=== PATIENT | male | born 1975 | race Caucasian/White ===

== ENCOUNTER 2020-09-02 08:51 | Outpatient (REF) | payer OTHER, SELFPAY ==
[2020-09-02 09:16] LABS: COVID-19 Test Negative (Negative); IDNOW Serial# 55D5AD1C
== END 2020-09-02 08:52 | disposition home or self-care (01) ==
LOC: HO.LAB 08:51
PROVIDERS: Visit Provider Internal Medicine
DX: Z20.828 Contact with and (suspected) exposure to other viral communicable diseases (principal)
CPT/HCPCS: 87635; C9803

== ENCOUNTER 2020-09-04 07:33 | Outpatient (REF) | payer OTHER, SELFPAY | END 2020-09-04 07:34 | disposition home or self-care (01) | LOC: HO.LAB 07:33 | PROVIDERS: Visit Provider Internal Medicine | DX: Z20.828 Contact with and (suspected) exposure to other viral communicable diseases (principal) | CPT/HCPCS: C9803; U0003 ==

== ENCOUNTER → 2021-05-07 11:07 | Outpatient (BNVA) | payer OTHER, SELFPAY | PROVIDERS: PCP Internal Medicine; Visit Provider Physician Assistant Medical | DX: S90.121A Contusion of right lesser toe(s) without damage to nail, initial encounter (principal); W23.0XXA Caught, crushed, jammed, or pinched between moving objects, initial encounter | CPT/HCPCS: 73630; 99202 ==

== ENCOUNTER → 2021-05-12 09:38 | Outpatient (BNVA) | payer OTHER, SELFPAY | PROVIDERS: PCP Internal Medicine; Visit Provider Physician Assistant Medical | DX: S90.121D Contusion of right lesser toe(s) without damage to nail, subsequent encounter (principal); X58.XXXD Exposure to other specified factors, subsequent encounter | CPT/HCPCS: 99213 ==

== ENCOUNTER 2022-01-25 06:45 | Outpatient (REF) | payer OTHER, SELFPAY ==
[2022-01-25 06:57] LABS: MANUAL DIFF FLAG NO
[2022-01-25 07:39] LABS: Basophils Percent Auto 0.3 % (0-2); Eosinophils Absolute Auto 0.5 X10*3/uL (0.0-0.4); Eosinophils Percent Auto 7.4 % (0-4); Hematocrit 42.2 % (42.0-52.0); Hemoglobin 14.4 g/dl (14.0-18.0); Imm Gran Abs Auto 0.03 X10*3/uL (0.00-0.03); Imm Gran Pct Auto 0.5 % (0.0-0.4); Lymphocytes Absolute Auto 2.5 X10*3/uL (1.2-4.9); Lymphocytes Percent Auto 37.1 % (20-40); Mean Corpuscular HGB Conc 34.1 g/dl (31.0-36.0); Mean Corpuscular Hemoglobin 29.8 pg (27.0-33.0); Mean Corpuscular Volume 87.2 fL (80.0-98.0); Mean Platelet Volume 9.7 fL (9.4-12.4); Monocytes Absolute Auto 0.6 X10*3/uL (0.1-1.2); Monocytes Percent Auto 9.1 % (2-11); Neutrophils Percent Auto 45.6 % (45-73); Platelet Count 316 X10*3/uL (160-400); Red Blood Count 4.84 X10*6/uL (4.60-5.80); White Blood Count 6.6 X10*3/uL (4.8-10.8)
[2022-01-25 08:02] LABS: Alanine Aminotransferase 18 U/L (0-40); Albumin Level 4.3 g/dL (3.5-5.0); Alkaline Phosphatase 45 U/L (39-117); Anion Gap 13 (12-20); Aspartate Amino Transferase 16 U/L (5-37); Bilirubin Total 0.6 mg/dL (0.0-1.0); Blood Urea Nitrogen 13 mg/dL (9-16); Calcium 9.9 mg/dL (8.4-10.2); Carbon Dioxide 25 mmol/L (22-29); Chloride 107 mmol/L (96-108); Cholesterol 232 mg/dL; Estimated Glomerular Filt Rate > 60; Glucose Fasting 94 mg/dL (60-99); HDL Cholesterol 58 mg/dL; LDL Cholesterol Calculated 156 mg/dl; Potassium 4.7 mmol/L (3.3-5.1); Sodium 140 mmol/L (135-145); Total Protein 7.2 g/dL (6.5-8.0); Triglycerides 90 mg/dL
== END 2022-01-25 06:46 | disposition home or self-care (01) ==
LOC: HO.LAB 06:45
PROVIDERS: PCP Internal Medicine; Visit Provider Internal Medicine
DX: Z00.00 Encounter for general adult medical examination without abnormal findings (principal)
CPT/HCPCS: 36415; 80053; 80061; 85025

== ENCOUNTER → 2022-02-28 12:41 | Outpatient (REF) | payer OTHER, SELFPAY ==
--- NOTE | 2022-02-28 12:44 | CA_ITS ---
Transthoracic Echocardiogram Patient (Last, First, Middle): Ld Mcclellan T Gender: Male Date of : 1975 Age: 46 Procedure Date: 02/28/2022 Procedure Type: Transthoracic Echocardiogram Location: OP Height: 182.88 cm Weight: 86.18 kg BSA: 2.08 m2 Heart Rate: bpm BP: 122 / 80 mmHg Director Of Direct Marketing: HATTIE Referring MD: ePter Longo MD Symptoms: Z82.49 FAM HX ISCHEMIC HEART DISEASE.FAM HX ARVC ASSESS RV, Study Quality: Good ECG Rhythm: Sinus Conclusions: - The left ventricular systolic function is normal. The calculated ejection fraction is 65% by biplane method. - Normal right ventricular cavity size and systolic function. - No obvious valvular pathology seen on this study. Findings Left Ventricle Normal left ventricular cavity size. There is normal left ventricular wall thickness. The left ventricular systolic function is normal. The calculated ejection fraction is 65% by biplane method. There is no evidence of regional wall motion abnormalities. Diastolic function is normal for age. LV peak GLS -18.7%. Right Ventricle Normal right ventricular cavity size and systolic function. Atria Both atria are normal in size. Aortic Valve There is a normal trileaflet aortic valve. There is no aortic valve stenosis. There is no aortic valve regurgitation. Mitral Valve The mitral valve appears normal. There is no mitral valve regurgitation. There is no mitral valve stenosis. Pulmonic Valve The pulmonic valve is likely normal. Tricuspid Valve There is trace tricuspid valve regurgitation. The pulmonary artery systolic pressure is normal. Great Vessels The aortic annulus, sinuses of valsalva, asc aorta, and aortic arch are normal in size. Venous The inferior vena cava is normal in size and collapses greater than 50% with inspiration. Pericardium/Pleural There is no evidence of pericardial effusion. Prior Study Comparison No prior study available for comparison. Recommendations, Care & Conclusions No obvious valvular pathology seen on this study. Measurements 2D Linear Measurements IVSd: 0.86 0.6-0.9/0.6-1.0 cm LVIDd: 4.58 3.9-5.3/4.2-5.9 cm LVIDd Index: 2.20 2.4-3.2/2.2-3.1 cm/m2 LVIDs: 2.62 2.0-3.6 cm LVPWd: 0.93 0.7-1.1 cm LA Diam: 4.10 2.7-3.8/3.0-4.0 cm LAIDs Index: 1.97 1.5-2.3 cm/m2 LV Mass: 169.03 67-162/88-224 g LV Mass Index: 81.26 43-95/49-115 g/m2 LVOT Diam: 2.50 3.0+(-)1.3 cm 2D Systolic Function EF 4C: 63.90 >55% EF 2C: 66.10 >55% EF BiP: 65.00 >55% Mitral Valve MV Pk E: 0.62 MV PK A: 0.50 MV Decel Time: 228.00 E/A: 1.20 E'Lateral: 12.30 E'Medial: 7.51 E/E' Med: 8.20 E/E' Lat: 5.00 PHT: 67.00 MVA PHT: 3.28 Decel Cherokee: 2.70 Aortic Valve AoV Pk Bernardino: 1.31 AoV Mn Bernardino: 0.93 AoV VTI: 0.30 AoV Pk Grad: 7.00 Aov Mn Grad: 4.00 LONG Cont.VTI: 3.83 LVOT LVOT Pk Bernardino: 1.10 LVOT Mn [place]: 0.69 LVOT VTI: 0.23 LVOT Pk Grad: 5.00 LVOT Mn Grad: 2.00 LVOT Diam: 2.50 LVOT Area: 4.91 Diastolic Function MV Pk E: 0.62 MV Pk A: 0.50 E/A: 1.20 E'Medial: 7.51 E/E' Med: 8.20 E' Laterial: 12.30 E/E' Lat: 5.00 Right Ventricle TAPSE (mm): 25.80 TVS' Bernardino: 11.70 Tricuspid Valve TR Pk Bernardino: 1.80 TR Pk Grad: 13.00 RA Press: 3.00 RVSP: 16.00 Great Vessels Aorta Sinus of Valsalva: 3.39 2.0-3.[address] Ridge: 2.16 1.7-3.4 cm Ao Asc: 3.30 2.1-3.4 cm Ao Arch: 2.90 Updated in Other Vendor System with Status of Final Garth Estes MD electronically signed on 02/28/2022 4:11:13 PM with status of Final
== END ==
LOC: HO.CARD 12:41
PROVIDERS: PCP Internal Medicine; Visit Provider Internal Medicine
DX: Z82.49 Family history of ischemic heart disease and other diseases of the circulatory system (principal)
CPT/HCPCS: 93306; 93356

== ENCOUNTER 2022-05-11 11:11 | Outpatient (REF) | payer OTHER, SELFPAY ==
[2022-05-11 13:49] LABS: Blood Urea Nitrogen 10 mg/dL (9-16); Estimated Glomerular Filt Rate > 60
== END 2022-05-11 11:12 | disposition home or self-care (01) ==
LOC: HO.LAB 11:11
PROVIDERS: PCP Internal Medicine; Visit Provider Internal Medicine Cardiovascular Disease
DX: Z01.812 Encounter for preprocedural laboratory examination (principal)
CPT/HCPCS: 36415; 82565; 84520

== ENCOUNTER 2023-01-25 14:49 | Outpatient (REF) | payer OTHER, SELFPAY ==
[2023-01-25 15:21] LABS: MANUAL DIFF FLAG NO
[2023-01-25 15:48] LABS: Basophils Percent Auto 0.3 % (0-2); Eosinophils Absolute Auto 0.2 X10*3/uL (0.0-0.4); Eosinophils Percent Auto 2.5 % (0-4); Hematocrit 42.2 % (42.0-52.0); Hemoglobin 14.4 g/dl (14.0-18.0); Imm Gran Abs Auto 0.03 X10*3/uL (0.00-0.03); Imm Gran Pct Auto 0.3 % (0.0-0.4); Lymphocytes Absolute Auto 4.4 X10*3/uL (1.2-4.9); Lymphocytes Percent Auto 47.6 % (20-40); Mean Corpuscular HGB Conc 34.1 g/dl (31.0-36.0); Mean Corpuscular Hemoglobin 30.3 pg (27.0-33.0); Mean Corpuscular Volume 88.7 fL (80.0-98.0); Mean Platelet Volume 9.3 fL (9.4-12.4); Monocytes Absolute Auto 0.7 X10*3/uL (0.1-1.2); Monocytes Percent Auto 7.7 % (2-11); Neutrophils Absolute Auto 3.8 x10*3/uL (2.0-8.3); Neutrophils Percent Auto 41.6 % (45-73); Platelet Count 306 X10*3/uL (160-400); Red Blood Count 4.76 X10*6/uL (4.60-5.80); Red Cell Distribution Width 11.9 % (11.0-16.0); White Blood Count 9.2 X10*3/uL (4.8-10.8)
[2023-01-25 16:12] LABS: Alanine Aminotransferase 22 U/L (0-40); Albumin Level 4.3 g/dL (3.5-5.0); Alkaline Phosphatase 46 U/L (39-117); Anion Gap 12 (12-20); Aspartate Amino Transferase 22 U/L (5-37); Bilirubin Total 0.6 mg/dL (0.0-1.0); Blood Urea Nitrogen 11 mg/dL (9-16); Calcium 9.4 mg/dL (8.4-10.2); Carbon Dioxide 25 mmol/L (22-29); Chloride 105 mmol/L (96-108); Estimated Glomerular Filt Rate > 60; Glucose Random 82 mg/dL (60-115); Magnesium 1.9 mg/dL (1.6-2.6); Potassium 4.4 mmol/L (3.3-5.1); Sodium 138 mmol/L (135-145); Total Protein 7.2 g/dL (6.5-8.0)
== END 2023-01-25 14:50 | disposition home or self-care (01) ==
LOC: HO.LAB 14:49
PROVIDERS: PCP Internal Medicine; Visit Provider Internal Medicine
DX: Z01.818 Encounter for other preprocedural examination (principal)
CPT/HCPCS: 36415; 80053; 83735; 85025

== ENCOUNTER 2023-02-01 14:42 | Outpatient (REF) | payer OTHER, SELFPAY ==
--- NOTE | ~2023-02-01 | XR_ITS ---
EXAMINATION: XR SINUSES CLINICAL INFORMATION: Sinus pressure COMPARISON: None available. TECHNIQUE: 3 views of the sinuses were obtained. FINDINGS: Paranasal sinuses appear clear without air-fluid levels. No fractures are identified. No radiodense foreign bodies. XR/XR sinus min 3V IMPRESSION: Unremarkable sinus exam examination.
[2023-02-01 14:56] LABS: MANUAL DIFF FLAG NO
[2023-02-01 15:32] LABS: Basophils Percent Auto 0.3 % (0-2); Eosinophils Absolute Auto 0.4 X10*3/uL (0.0-0.4); Eosinophils Percent Auto 3.3 % (0-4); Hematocrit 39.2 % (42.0-52.0); Hemoglobin 13.5 g/dl (14.0-18.0); Imm Gran Abs Auto 0.06 X10*3/uL (0.00-0.03); Imm Gran Pct Auto 0.5 % (0.0-0.4); Lymphocytes Absolute Auto 4.2 X10*3/uL (1.2-4.9); Lymphocytes Percent Auto 32.6 % (20-40); Mean Corpuscular HGB Conc 34.4 g/dl (31.0-36.0); Mean Corpuscular Hemoglobin 30.5 pg (27.0-33.0); Mean Corpuscular Volume 88.7 fL (80.0-98.0); Mean Platelet Volume 9.3 fL (9.4-12.4); Monocytes Percent Auto 8.1 % (2-11); Neutrophils Absolute Auto 7.1 x10*3/uL (2.0-8.3); Neutrophils Percent Auto 55.2 % (45-73); Platelet Count 298 X10*3/uL (160-400); Red Blood Count 4.42 X10*6/uL (4.60-5.80); Red Cell Distribution Width 11.8 % (11.0-16.0); White Blood Count 12.8 X10*3/uL (4.8-10.8)
== END 2023-02-01 14:43 | disposition home or self-care (01) ==
LOC: HO.LAB 14:42
PROVIDERS: PCP Internal Medicine; Visit Provider Internal Medicine
DX: J02.9 Acute pharyngitis, unspecified (principal); R53.83 Other fatigue; R51.9 Headache, unspecified
CPT/HCPCS: 36415; 70220; 85025; 87070; 87147; 87205

== ENCOUNTER 2023-02-02 10:37 | Outpatient (REF) | payer OTHER, SELFPAY ==
[2023-02-02 14:38] LABS: Adenovirus F 40/41 Not Detected (Not Detect.); Campylobacter Not Detected (Not Detect.); Cryptosporidium Not Detected (Not Detect.); Cyclospora cayetanensis Not Detected (Not Detect.); E. coli EAEC Not Detected (Not Detect.); E. coli EPEC Not Detected (Not Detect.); E. coli ETEC Not Detected (Not Detect.); E. coli STEC Not Detected (Not Detect.); Entamoeba histolytica Not Detected (Not Detect.); Giardia lamblia Not Detected (Not Detect.); Plesiomonas shigelloides Not Detected (Not Detect.); Salmonella Not Detected (Not Detect.); Shigella sp./EIEC Not Detected (Not Detect.); Vibrio Not Detected (Not Detect.); Vibrio Cholerae Not Detected (Not Detect.); Yersinia enterocolitica Not Detected (Not Detect.)
[2023-02-02 14:39] LABS: Astrovirus Not Detected (Not Detect.); Norovirus GI/GII Not Detected (Not Detect.); Rotavirus A Not Detected (Not Detect.); Sapovirus Not Detected (Not Detect.)
== END 2023-02-02 10:38 | disposition home or self-care (01) ==
LOC: HO.LNP 10:37
PROVIDERS: Visit Provider Internal Medicine
DX: J02.9 Acute pharyngitis, unspecified (principal); R50.9 Fever, unspecified; J34.89 Other specified disorders of nose and nasal sinuses; R19.7 Diarrhea, unspecified
CPT/HCPCS: 87507

== ENCOUNTER 2023-02-20 16:13 | Outpatient (REF) | payer OTHER, SELFPAY | END 2023-02-20 16:14 | disposition home or self-care (01) | LOC: HO.LNP 16:13 | PROVIDERS: Visit Provider Internal Medicine | DX: J02.9 Acute pharyngitis, unspecified (principal) | CPT/HCPCS: 87070 ==

== ENCOUNTER 2023-11-17 08:56 | Day surgery (SDC) | payer OTHER, SELFPAY ==
--- NOTE | 2023-06-27 09:19 | HO.ANESPROP2 ---
HPI - Anesthesia Eval Consult details Narrative: 47yo M for Colonoscopy [facility] Past Medical History Medical History (Updated 01/27/23 @ 13:43 by Leslie Espinal RN) Long QT interval History of IBS Meds Allergies Allergy/AdvReac Type Severity Reaction Status Date / Time No Known Allergies Allergy Unverified 06/25/20 15:21 Home Medications Medication Instructions Recorded Confirmed Last Taken Type nadolol 40 mg tablet 40 mg PO DAILY 01/27/23 01/27/23 Unknown History Exam Exam Date and Time: June 27, 2023 0919 Pertinent Lab Results Pertinent Lab Results: Laboratory Tests 01/25/23 02/01/23 15:15 14:56 WBC 12.8 H Hgb 13.5 L Hct 39.2 L Plt Count 298 Sodium 138 Potassium 4.4 Chloride 105 Carbon Dioxide 25 BUN 11 Creatinine 0.93 Narrative Narrative: ECHO 2021 Conclusions: - The left ventricular systolic function is normal. The calculated ejection fraction is 65% by biplane method. - Normal right ventricular cavity size and systolic function. - No obvious valvular pathology seen on this study. Assessment and Plan Assessment Anesthesia Assessment: Chart Reviewed
[2023-11-15 14:49] VITALS: BMI 25.9
--- NOTE | 2023-11-16 11:48 | P.CONAN_ITS ---
Documented by User: Lindsay Osorio NP 11/16/23 13:01 HPI - Anesthesia Eval Consult details Narrative: 48yo M for Colonoscopy Follows cardiology for Long QT syndrome with issue. OK to proceed per cardiology letter. [facility] Past Medical History Medical History Family history of cardiac arrest Long QT interval History of IBS Surgical History Surgical History No pertinent past surgical history Social History Social History Patient Tobacco Use Status: Never used Tobacco Use of substances other than those prescribed or required for medical reasons: Yes Are you DNR?: No Advance Directives: No Advance Directives Information Provided: Yes Meds Allergies Allergy/AdvReac Type Severity Reaction Status Date / Time No Known Allergies Allergy Unverified 06/25/20 15:21 Home Medications Medication Instructions Recorded Confirmed Last Taken Type nadolol 40 mg tablet 40 mg PO DAILY 01/27/23 01/27/23 Unknown History Exam Height,Weight and Vital Signs: Height 6 ft Weight 86.636 kg Narrative Narrative: ECHO 2021 Conclusions: - The left ventricular systolic function is normal. The calculated ejection fraction is 65% by biplane method. - Normal right ventricular cavity size and systolic function. - No obvious valvular pathology seen on this study. Assessment and Plan Assessment Anesthesia Assessment: Chart Reviewed Documented by User: Paul Corbin MD 11/17/23 10:11 [facility] Past Medical History Medical History Family history of cardiac arrest Long QT interval History of IBS Family History Family history of problems with anesthesia: No Surgical History Surgical History No pertinent past surgical history History of Problems with Anesthesia: No Social History Social History Patient Tobacco Use Status: Never used Tobacco Use of substances other than those prescribed or required for medical reasons: Yes Are you DNR?: No Advance Directives: No Advance Directives Information Provided: Yes Meds Allergies Allergy/AdvReac Type Severity Reaction Status Date / Time No Known Allergies Allergy Unverified 06/25/20 15:21 Home Medications Medication Instructions Recorded Confirmed Last Taken Type nadolol 40 mg tablet 40 mg PO DAILY 01/27/23 01/27/23 Unknown History Exam Airway Mallampati Class: II TM Dist: >3cm Neck ROM: Full Loose/Missing/Broken Teeth: No Heart: rrr+s1s2 Lungs: cta b/l Assessment and Plan Assessment Anesthesia Assessment: Anesthesia Plan Discussed Final Anesthetic Review Family History of Problems with Anesthesia: No History of Problems with Anesthesia: No NPO: Yes ASA Class: II Final Preanesthetic Review: No Changes in Pt Med Stat, Meds/Allgs Chart Reviewed, Consent Obtained/Reviewed and Anes Risks/Benef Reviewed Patient Risk: Intermediate Procedure Risk: Intermediate Assessment/Block/Sedation in SS: Assess/Block/Sedation-SS Anesthetic Plan Anesthetic Plan: MAC: Disposition: Standard PACU
--- OUTSIDE RECORDS SUMMARY | 2023-11-17 08:58 | XMS_ITS | Continuity of Care Document ---
Author Name Unknown Organization [facility] Address [address] [address]- Care Team Providers Care Needle Punch Machine Operator Helper Name Role Phone Peter Longo MD Primary Care Physician [phone] Encounter [facility] [place] Date(s): 03/03/22 - 03/10/22 [facility] [address] [address]- Encounter Diagnosis Cardiomyopathy, familial(Discharge Diagnosis) - 03/03/22 Attending Physician: Danny Zavala Jr, MD Admitting Physician: Danny Zavala Jr, MD Referring Physician: Peter Longo MD Allergies, Adverse Reactions, Alerts No Known Medication Allergies Medications No Known Medications Problem List Diagnosis Diagnosis Type Effective Dates Health Status Cl inical Service Informant Cardiomyopathy, familial Discharge Diagnosis 03/03/22 Vital Signs Most recent to oldest [Reference Range]: 1 Weight 87.6 kg (03/03/22 8:56 AM) Oxygen Saturation [94-100 %] 98 % (03/03/22 8:56 AM) Pulse Rate [55-90 bpm] 66 bpm (03/03/22 8:56 AM) Blood Pressure [90-138/55-84 mm Hg] 113/ 68mm Hg (03/03/22 8:56 AM) Mode of Delivery (Oxygen) Room air (03/03/22 8:56 AM) Blood pressure sites Arm, left (03/03/22 8:56 AM) Weight Obtained Via Standing scale (03/03/22 8:56 AM)
--- OUTSIDE RECORDS SUMMARY | 2023-11-17 08:58 | XMS_ITS | Continuity of Care Document ---
Author Name Unknown Organization [facility] Address [address] [place] [address]- Care Team Providers Care Boom Boss Name Role Phone Peter Longo MD Primary Care Physician Encounter [facility] [place] Date(s): 07/12/22 - 08/11/22 [facility] [place] [address] [place] [address]- Allergies, Adverse Reactions, Alerts No Known Medication Allergies Medications nadolol 40 mg oral tablet 40 mg, 1, tablet, By Mouth, Daily, # 30 tablet, Refills 3, Tot. Refills 3, Maintenance, 06/10/22 15:08:00 EDT, Route to Pharmacy Electronically, [facility], Partial fill upon patient request if the prescription is for a schedule II opioi... Start Date: 06/10/22 Status: Ordered Patient Care team information Personnel Name: Peter Longo MD Address: Address: [address] [place] [address] [place] [address]-
--- OUTSIDE RECORDS SUMMARY | 2023-11-17 08:58 | XMS_ITS | Continuity of Care Document ---
Author Name Unknown Organization [facility] Address [address] Floor [address] [place] [address]- Care Team Providers Care Manager Steel Name Role Phone Peter Longo MD Primary Care Physician [place] [facility] [place]22 - 07/08/22 [facility] [place] [address] [place] [address]- Attending Physician: Sara Calzada Admitting Physician: Sara Calzada Referring Physician: AdmtrSara Allergies, Adverse Reactions, Alerts No Known Medication [...] Personnel Name: Peter Longo MD Address: Address: [address] [place] [address] [place] [address]-
--- OUTSIDE RECORDS SUMMARY | 2023-11-17 08:58 | XMS_ITS | Continuity of Care Document ---
Author Name Unknown Organization [facility] Address [address] [place] [address]- Care Team Providers Care Saturation Equipment Operator Name Role Phone Peter Longo MD Primary Care Physician En[place] [facility] [place] Date(s): 06/21/22 - 07/21/22 [facility] [address] [place] [address]- Allergies, Adverse Reactions, Alerts No Known Medication [...] Personnel Name: Peter Longo MD Address: Address: [address] [facility] [place] [address]-
--- OUTSIDE RECORDS SUMMARY | 2023-11-17 08:58 | XMS_ITS | Continuity of Care Document ---
Author Name Unknown Organization [facility] Address [address] [place] [address]- Care Team Providers Care Rivet Machine Operator Name Role Phone Peter Longo MD Primary Care Physician [place] [facility] [place] 06/08/22 - 06/15/22 [facility] [place] [address] [place] [address]- Encounter Diagnosis Long QT syndrome type 2(Discharge Diagnosis) - 06/08/22 Attending Physician: Danny Zavala Jr, MD Admitting [...] II opioi... Start Date: 06/10/22 Status: Ordered Problem List Diagnosis Diagnosis Type Effective Dates Health Status Cl inical Service Informant Long QT syndrome type 2 Discharge Diagnosis 06/08/22 Vital Signs Most recent to oldest [Reference Range]: 1 Weight 85.2 kg (06/08/22 9:57 AM) Oxygen Saturation [94-100 %] 100 % (06/08/22 9:57 AM) Pulse Rate [55-90 bpm] 76 bpm (06/08/22 9:57 AM) Blood Pressure [90-138/55-84 mm Hg] 125/ 83mm Hg (06/08/22 9:57 AM) Mode of Delivery (Oxygen) Room air (06/08/22 9:57 AM) Blood pressure sites Arm, left (06/08/22 9:57 AM) Weight Obtained Via Standing scale (06/08/22 9:57 AM) Care Team Personnel Name: Peter Longo MD Address: [address] [place], [place] [address]-
--- OUTSIDE RECORDS SUMMARY | 2023-11-17 08:58 | XMS_ITS | Continuity of Care Document ---
Author Name Unknown Organization [facility] Address [address] [id number]- Care Team Providers Care Food Safety Auditor Name Role Phone Peetr Longo MD Primary Care Physician [id number] Date[facility]s): 01/20/22 - 04/01/[address] [address]- Attending Physician: Danny Zavala Jr, MD Admitting Physician: Danny Zavala Jr, MD Referring Physician: Peter Longo MD Allergies, Adverse Reactions, Alerts No Known Medication Allergies
--- OUTSIDE RECORDS SUMMARY | 2023-11-17 08:58 | XMS_ITS | Continuity of Care Document ---
Author Name Unknown Organization [facility] Address [address] [address]- Care Team Providers Care Graining Press Operator Name Role Phone Peter Longo MD Primary Care Physician [place] [facility] [place] 05/03/22 - 06/02/22 [facility] [address] [address] Attending Physician: Admtr, Ar8 Admitting Physician: Admtr, Ar8 Referring Physician: Admtr, Ar8 Allergies, Adverse Reactions, Alerts No Known Medication Allergies Care Team Personnel Name: Peter Longo MD Address: [address] [facility] [place], [place] [address]
--- OUTSIDE RECORDS SUMMARY | 2023-11-17 08:58 | XMS_ITS | Continuity of Care Document ---
Author Name Unknown Organization [facility] Address [address] Floor [address] [place] [address]- Care Team Providers Care Running Specialist Name Role Phone Peter Longo MD Primary Care Physician Encounter [facility] [place] Date(s): 08/31/22 - 09/30/22 [facility] [place] [address] [place] [address]- Allergies, Adverse Reactions, Alerts No Known Medication Allergies Medications nadolol 40 mg oral tablet 40 mg, 1, tablet, By Mouth, Daily, # 90 tablet, Refills 3, Tot. Refills 3, Maintenance, 09/15/22 14:17:00 EST, Route to Pharmacy Electronically, [facility], Partial fill upon patient request if the prescription is for a schedule II opioi... Start Date: 09/15/22 Status: Ordered Patient Care team information Care Team Personnel Name: Peter Longo MD Position: S Outreach Member Role: PCP Address: Address: [address] [facility] [place] [address]- Care Team Related Persons Name: KADEN HOBBS Address: home [address] [place] [address]
--- OUTSIDE RECORDS SUMMARY | 2023-11-17 08:58 | XMS_ITS | Continuity of Care Document ---
Author Name Unknown Organization [facility] Address [address] [place] [address]- Care Team Providers Care Realtime Court Reporter Name Role Phone Peter Longo MD Primary Care Physician [place] [facility] [place](s): 09/15/22 - 10/15/22 [facility] [place] [address] [place] [address]- Allergies, Adverse Reactions, Alerts No Known Medication [...] S Outreach Member Role: PCP Address: Address: [address] [place] [address] [place] [address]- Care Team Related Persons Name: KADEN HOBBS Address: home [address] [place] [address]
--- OUTSIDE RECORDS SUMMARY | 2023-11-17 08:58 | XMS_ITS | Continuity of Care Document ---
Author Name Unknown Organization [facility] Address [address] [address]- Care Team Providers Care Home Planning Consultant Salesperson Name Role Phone Peter oLngo MD Primary Care Physician [phone] Encounter [facility] Date(s): 03/03/22 - 06/02/[address] [address] Attending Physician: Danny Zavala Jr, MD Admitting Physician: Danny Zavala Jr, MD Referring Physician: Peter Longo MD Allergies, Adverse Reactions, Alerts No Known Medication Allergies Care Team Personnel Name: Peter Longo MD Address: [address] [place], [place] [address]
--- OUTSIDE RECORDS SUMMARY | 2023-11-17 08:58 | XMS_ITS | Continuity of Care Document ---
Author Name Unknown Organization [facility] Address [address] [place] [address]- Care Team Providers Care Contracts Advisor Name Role Phone Peter Longo MD Primary Care Physician [phone] Encounter [facility] [place] Date(s): 06/27/22 - 07/27/22 [facility] [place] [address] [place] [address]- Allergies, Adverse Reactions, Alerts No Known Medication [...] Personnel Name: Peter Longo MD Address: Address: [address] [place] [address] [place] [address]-
--- OUTSIDE RECORDS SUMMARY | 2023-11-17 08:58 | XMS_ITS | Patient Health Record ---
Author Name Unknown Organization [facility] Address [address] [place] [address] Care Team Providers Care Entry Examiner Name Role Phone Peter Longo MD Primary Care Provider Raudel Irving [phone] ALLERGIES No Known Allergies REASON FOR REFERRAL No Information MEDICATIONS Medication SIG (Take, Route, Frequency, Duration) Notes Start Date End Date Status Nadolol 40 MG TAKE 1 TABLET BY RACHELL TH DAILY Oral for 90 Active IMMUNIZATIONS Vaccine Route Administration Date Status Comme nts Influenza Unknown 11/01/2022 Refused SOCIAL HISTORY Tobacco Use: Social History Observation Description Date Details (start date - stop date) Never Smoker NA - NA Sex Assigned At : Social History Observation Description Sex Assigned At Unknown Tobacco Use/Smoking Question Answer Notes Patient is a nonsmoker Alcohol Screen Question Answer Notes Did you have a drink contain ing alcohol in the past year? Yes How often did you have a dri nk containing alcohol in the past year? 2 to 4 times a month (2 points) How many drinks did you have on a typical day when you were drinking in the past year? 1 or 2 drinks (0 point) How often did you have 6 or more drinks on one occasion in the past year? Never (0 point) Points 2 Interpretation Negative PROBLEMS Problem Type ICD Code Onset Dates Problem Status W/U Status Risk SNOMED Code Notes Problem Colon cancer screening (Z12.11) Active confirmed 966607229 Problem Preprocedural examination (Z01.818) Active confirmed [id number] Encounters Encounter Location Date Provider Diagnosis [facility] [place] [address] [place] [phone] 01/09/2023 Raudel Mckeon [facility] [place] [address] [facility] [place] [id number] 01/30/2023 Raudel Mckeon [facility] [place] [address] [facility] [place] [id number] 04/05/2023 Raudel Mckeon [facility] [place] [address] [facility] [place] [phone] 2023 Raudel Mckeon [facility] [address] [facility] [place] [id number] 08/30/2023 Raudel Mckeon [facility] [place] [address] [facility] [place] [id number] 11/17/20[facility] [address] [place] [address] 11/17/2022 Raudel Mckeon [facility] [address] [place] [address] 02/05/2023 Raudel Mckeon [facility] [address] [place] [address] 04/03/2023 Raudel Mckeon [facility] [address] [place] [address] 06/27/2023 Raudel Mckeon [facility] [address] [place] [address] 08/17/2023 Raudel Mckeon [facility] [address] [place] [address] 11/05/2023 Raudel Mckeon PLAN OF TREATMENT Future Test Test Name Order Date COLONOSCOPY 11/01/2022 Next Appt Details Provider Name:Raudel Mckeon , 11/17/2023 10:00:00 AM, [address] [place] [address], [phone], Insurance Providers Payer Name Payer Address Payer Phone Subscriber Number Group Number Insured Name Patient Relationship to Insured Coverage Start Date Coverage End Date [facility] [address] [place] [phone] [id number] JOSHUA PEREYRA Self - patient is the insured MEDICAL (GENERAL) HISTORY Medical History History ICD Code Long Q-T interval--he has a family history of cardiac arrest in his brother who was successfully resuscitated and now has a defibrillator in place. Joshua is seeing Dr. Zavala at [facility] and Dr. Reinoso at [facility]-he has had ETT, Cardiac Echo, and is scheduled for placement of some type of internal monitor on 11/08/2022 with a followup appointment with Dr. Reinoso on 11/16/2022. Joshua was started on nadolol for the long QT interval. Denies GA,DM,CVA,Lung disease,renal dise ase Mild IBS with negative laboratories for celiac disease in 2019 Surgical History Surgery Date(Month/Year)
[2023-11-17 09:59] VITALS: BP 121/70; PULSE 57; RESP 16; TEMP 36.5; O2SAT 98; BMI 24.7
[2023-11-17] MEDS: Lactated Ringers 1,000 ML 100 ML IVCONT (10:10)
--- NOTE | 2023-11-17 10:49 | PM.OP ---
Brief Operative Note Date of Service: 11/10/23 Pre-op diagnosis: Screening Post-op diagnosis: other (Internal hemorrhoids) Procedure: Colonoscopy to the cecum and TI Surgeon: Raudel Mckeon MD Was an Financial Reporting Accountant used for this Procedure?: No Estimated blood loss (mL): 0 Pathology: none sent Condition: stable Disposition: PACU
[2023-11-17 10:50] VITALS: BP 91/52; PULSE 56; RESP 12; TEMP 36.1; O2SAT 97
[2023-11-17 11:05] VITALS: BP 116/73; PULSE 52; RESP 18; TEMP 36.3; O2SAT 100
--- NOTE | 2023-11-17 11:06 | OP_ITS ---
DATE OF SERVICE: 11/17/2023 SURGEON: Raudel Mckeon MD INDICATIONS: The patient presents for evaluation of colorectal cancer screening. Full consent was obtained from him for this, including risks of bleeding and perforation. PREOPERATIVE DIAGNOSIS: Colorectal cancer screening. POSTOPERATIVE DIAGNOSIS: PROCEDURE PERFORMED: Colonoscopy to the cecum and terminal ileum. ESTIMATED BLOOD LOSS: COMPLICATIONS: ANESTHESIA: Medications used, monitored anesthesia care. ASSISTANTS: SPECIMENS: POSTOPERATIVE DIAGNOSES: Colorectal cancer screening, internal hemorrhoids. DESCRIPTION OF PROCEDURE: The patient was placed in the left lateral decubitus position. The digital rectal exam revealed no abnormalities. The Olympus video pediatric colonoscope was entered into the rectum and advanced easily to the cecum. Once in the cecum, I did identify normal-appearing cecal pouch with appendiceal orifice a normal-appearing ileocecal valve. The terminal ileum was cannulated and appeared normal. The scope was withdrawn back in the colon. The entire cecum and ileocecal valve appeared normal. The scope was slowly withdrawn assessing all mucosal surfaces carefully. Preparation was excellent. I did not visualize any sign of polyps, colitis, nor angiodysplasia. In the rectum, scope was retroflexed visualizing small internal hemorrhoids, but no other pathology. The rectal mucosa appeared normal. Scope was straightened and withdrawn from the patient. He tolerated the procedure well and was returned to the recovery area in stable condition. IMPRESSION: Internal hemorrhoids. PLAN: Given the negative exam, I would recommend a followup coloscopy in 10 years. He will otherwise see me on a p.r.n. basis. Raudel Mckeon MD RMW/MODL / [id number]
== END 2023-11-17 11:30 | disposition home or self-care (01) ==
PROVIDERS: PCP Internal Medicine; Visit Provider Internal Medicine
PROC: 0DJD8ZZ Inspection of Lower Intestinal Tract, Via Natural or Artificial Opening Endoscopic (ICD-10-PCS; CPT 45378; principal; 2023-11-17 10:00)
DX: Z12.11 Encounter for screening for malignant neoplasm of colon (principal); K64.8 Other hemorrhoids
CPT/HCPCS: 45378; J0461; J2704

== ENCOUNTER 2024-08-05 12:39 | Outpatient (REF) | payer BC, SELFPAY ==
[2024-08-05 14:24] LABS: Magnesium 2.1 mg/dL (1.6-2.6)
== END 2024-08-05 12:40 | disposition home or self-care (01) ==
LOC: HO.10HDL 12:39
PROVIDERS: Visit Provider Internal Medicine
DX: E83.42 Hypomagnesemia (principal)
CPT/HCPCS: 36415; 83735